=== PATIENT | male | born 2000 ===

== ENCOUNTER 2021-01-31 18:59 | Emergency (ER) | payer OTHER ==
[2021-01-31 20:06] VITALS: BP 174/92
[2021-01-31] MEDS ORDERED: ACETAMINOPHEN 500 MG TAB PO ONE (20:19)
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
[2021-01-31] MEDS ORDERED: IBUPROFEN 600 MG TAB PO ONE (21:26)
[2021-01-31] MEDS ORDERED: ONDANSETRON 4 MG ODT TAB PO ONE (21:27)
[2021-01-31] MEDS ORDERED: HYDROcodone/ACETAMINOPHEN 5-325 MG TAB PO ONE (21:27)
== END 2021-01-31 23:54 | disposition home or self-care (01) ==
LOC: ED 18:59
DX: S01.01XA Laceration without foreign body of scalp, initial encounter (principal); F41.9 Anxiety disorder, unspecified; F31.9 Bipolar disorder, unspecified; Z98.890 Other specified postprocedural states; M79.641 Pain in right hand; M79.642 Pain in left hand; M79.671 Pain in right foot; M79.672 Pain in left foot; M54.2 Cervicalgia; M79.18 Myalgia, other site; Y04.8XXA Assault by other bodily force, initial encounter; Y93.89 Activity, other specified; Y92.89 Other specified places as the place of occurrence of the external cause; Y99.8 Other external cause status
CPT/HCPCS: 70450; 70486; 72125; 99283; Q0162